=== PATIENT | male | born 1945 | race Caucasian/White ===

== ENCOUNTER 2017-03-28 13:46 | Emergency (ER) | payer MEDICARE, BC ==
[2005-12-15 17:22] VITALS: BP 147/90
[~2017-03-28] VITALS: Ht 175.3 cm; Wt 78.2 kg
[~2017-03-28 13:46] MED LIST: ACETAMINOPHEN W1 TA6 PO; ALLOPURINOL300 MG PO; BENICAR HCT 12.1 TAB PO; CALCIUM CITRAT200 MG PO; DIPHEN/ATROP; LANSOPRAZOLE30 MG PO; LISINOPRIL/HCTZ1 TAB PO; METRONIDAZOLE500 MG PO; NEXIUM 40MG40 MG PEG; PHENERGAN 25 TA25 MG PO; [UNRECOGNIZED DRUG - CODE]
[2017-03-28 14:01] VITALS: BP 120/63; PULSE 92; TEMP 98
== END 2017-03-28 15:30 | disposition home or self-care (01) ==
LOC: COL.ER 13:46
DX: S81.012A Laceration without foreign body, left knee, initial encounter (principal); I10 Essential (primary) hypertension; Z93.2 Ileostomy status; W27.1XXA Contact with garden tool, initial encounter; Y92.007 Garden or yard of unspecified non-institutional (private) residence as the place of occurrence of the external cause; Z23 Encounter for immunization

== ENCOUNTER 2017-04-11 13:19 | Emergency (ER) | payer MEDICARE, BC ==
[2017-04-11 13:22] VITALS: BP 124/57; PULSE 71; TEMP 97.8
== END 2017-04-11 13:26 | disposition home or self-care (01) ==
LOC: COL.ER 13:19
DX: S81.012D Laceration without foreign body, left knee, subsequent encounter (principal); X58.XXXD Exposure to other specified factors, subsequent encounter

== ENCOUNTER 2020-07-03 15:00 | Outpatient (RCR) | payer MEDICARE, BC ==
[2005-12-15 17:22] VITALS: BP 147/90
[2020-05-22 15:26] LABS: HEMATOCRIT 42.2 % (42.0-52.0); MEAN CELL VOLUME 90 fl (80.0-100.0); MEAN CORPUSCULAR HEMOGLOBIN 30 pg (27.0-31.0); MEAN CORPUSCULAR HGB CONC 33 g/dl (33.0-37.0); MEAN PLATELET VOLUME 8.9 fl (7.4-10.4); PLATELET COUNT 214 K/mm3 (130-400); REDCELL DISTRIBUTION WIDTH-CV 14.1 % (11.5-14.5)
[2020-05-22 15:51] LABS: ALBUMIN 3.3 gm/dL (3.5-5.0); BILIRUBIN,TOTAL 0.7 mg/dL (0.0-1.0); CALCIUM 8.6 mg/dL (8.4-10.2); CREATININE, serum 1.11 (0.66-1.25); POTASSIUM 3.9 mmol/L (3.4-5.0); TOTAL PROTEIN 6.3 gm/dL (6.4-8.2)
[2020-05-22 16:00] VITALS: BP 134/77; PULSE 80; TEMP 98.3
[2020-05-22 17:35] VITALS: BP 134/80; PULSE 80; TEMP 98.3
[2020-06-05 15:07] LABS: HEMATOCRIT 42.7 % (42.0-52.0); HEMOGLOBIN 14.3 g/dl (13.5-18.0); MEAN CELL VOLUME 90 fl (80.0-100.0); MEAN CORPUSCULAR HEMOGLOBIN 30 pg (27.0-31.0); MEAN CORPUSCULAR HGB CONC 34 g/dl (33.0-37.0); MEAN PLATELET VOLUME 8.6 fl (7.4-10.4); PLATELET COUNT 279 K/mm3 (130-400); RED BLOOD COUNT 4.77 M/mm3 (4.20-5.60); REDCELL DISTRIBUTION WIDTH-CV 13.8 % (11.5-14.5)
[2020-06-05 15:16] LABS: ALBUMIN 3.5 gm/dL (3.5-5.0); BILIRUBIN,TOTAL 0.5 mg/dL (0.0-1.0); CALCIUM 9.1 mg/dL (8.4-10.2); CREATININE, serum 1.1 (0.66-1.25); POTASSIUM 3.9 mmol/L (3.4-5.0); TOTAL PROTEIN 6.7 gm/dL (6.4-8.2)
[2020-06-05 16:04] VITALS: BP 131/64; PULSE 85; TEMP 98.4
[2020-06-05 16:30] VITALS: BP 137/62; PULSE 88
[~2020-07-03] VITALS: Ht 175.3 cm; Wt 74.1 kg
[2020-07-03 10:34] LABS: HEMATOCRIT 45.6 % (42.0-52.0); HEMOGLOBIN 15.2 g/dl (13.5-18.0); MEAN CELL VOLUME 90 fl (80.0-100.0); MEAN CORPUSCULAR HEMOGLOBIN 30 pg (27.0-31.0); MEAN CORPUSCULAR HGB CONC 33 g/dl (33.0-37.0); MEAN PLATELET VOLUME 9.1 fl (7.4-10.4); PLATELET COUNT 247 K/mm3 (130-400); RED BLOOD COUNT 5.07 M/mm3 (4.20-5.60); REDCELL DISTRIBUTION WIDTH-CV 14.6 % (11.5-14.5)
[2020-07-03 10:49] LABS: ALBUMIN 3.8 gm/dL (3.5-5.0); BILIRUBIN,TOTAL 0.9 mg/dL (0.0-1.0); CREATININE, serum 1.06 (0.66-1.25); POTASSIUM 3.5 mmol/L (3.4-5.0); TOTAL PROTEIN 6.6 gm/dL (6.4-8.2)
[2020-07-03 11:55] VITALS: BP 144/79; PULSE 69; TEMP 98.4
[2020-07-03 12:17] VITALS: BP 133/76; PULSE 69; TEMP 98.4
[~2020-07-03 15:00] MED LIST changes: +ADVIL200 MG PO; -ALLOPURINOL300 MG PO; +CLARITIN-D 10 M1 T24 PO; +COZAAR 50MG50 MG/TAB PO; +ENTOCORT EC3 MG PO; +FLAGYL500 MG PO; +FLONASEALLERGY NS; +FOSAMAX 35MG35 MG PO; +KRILL OIL 1,001 EAC1 PO; -LANSOPRAZOLE30 MG PO; +LOMOTIL 0.025 M1 TAB PO; -METRONIDAZOLE500 MG PO; +PATADAY5 ML OP; +PREDFORTE15ML OU; +PREVACID 30MG30 M1 PO; +TRIAMCINOLONE AC0.13 TOP; +ZYLOPRIM 300MG300 MG PO; +[UNRECOGNIZED DRUG - OTHER] PO
== END 2020-07-03 16:00 | disposition still patient (30) ==
LOC: EUO 15:00
PROVIDERS: Internal Medicine Gastroenterology
DX: K50.90 Crohn's disease, unspecified, without complications (principal); Z79.899 Other long term (current) drug therapy
CPT/HCPCS: J1200; J2920; J2930; J3380; J7050

== ENCOUNTER 2020-08-28 14:46 | Outpatient (CLI) | payer MEDICARE, BC ==
[2005-12-15 17:22] VITALS: BP 147/90
[2020-08-28 15:27] LABS: HEMATOCRIT 40.1 % (42.0-52.0); HEMOGLOBIN 13.7 g/dl (13.5-18.0); MEAN CELL VOLUME 89 fl (80.0-100.0); MEAN CORPUSCULAR HEMOGLOBIN 30 pg (27.0-31.0); MEAN CORPUSCULAR HGB CONC 34 g/dl (33.0-37.0); MEAN PLATELET VOLUME 8.8 fl (7.4-10.4); PLATELET COUNT 263 K/mm3 (130-400); RED BLOOD COUNT 4.51 M/mm3 (4.20-5.60)
[2020-08-28 15:44] LABS: ALBUMIN 3.4 gm/dL (3.5-5.0); BILIRUBIN,TOTAL 0.6 mg/dL (0.0-1.0); CALCIUM 8.8 mg/dL (8.4-10.2); CREATININE, serum 1.1 (0.66-1.25); POTASSIUM 3.6 mmol/L (3.4-5.0)
[2020-08-28 17:00] VITALS: BP 129/60; PULSE 73; TEMP 97.4
== END 2020-08-28 18:20 | disposition home or self-care (01) ==
LOC: EUO 14:46
PROVIDERS: Internal Medicine Gastroenterology
DX: K50.90 Crohn's disease, unspecified, without complications (principal); Z79.899 Other long term (current) drug therapy
CPT/HCPCS: J1200; J2930; J3380; J7050

== ENCOUNTER 2020-10-23 08:57 | Outpatient (CLI) | payer MEDICARE, BC ==
[2005-12-15 17:22] VITALS: BP 147/90
[~2020-10-23] VITALS: Ht 175.3 cm; Wt 74.6 kg
[2020-10-23 11:13] VITALS: BP 115/76; PULSE 91; TEMP 99.1
[2020-10-23 11:50] VITALS: BP 116/78; PULSE 89; TEMP 98.4
[2020-10-23 12:33] LABS: ALBUMIN 3.4 gm/dL (3.5-5.0); BILIRUBIN,TOTAL 0.6 mg/dL (0.0-1.0); CREATININE, serum 1.14 (0.66-1.25); POTASSIUM 3.8 mmol/L (3.4-5.0); TOTAL PROTEIN 6.2 gm/dL (6.4-8.2)
[2020-10-23 13:48] LABS: MEAN CELL VOLUME 90 fl (80.0-100.0); MEAN CORPUSCULAR HEMOGLOBIN 30 pg (27.0-31.0); MEAN CORPUSCULAR HGB CONC 33 g/dl (33.0-37.0); MEAN PLATELET VOLUME 8.8 fl (7.4-10.4); PLATELET COUNT 317 K/mm3 (130-400); RED BLOOD COUNT 4.66 M/mm3 (4.20-5.60); REDCELL DISTRIBUTION WIDTH-CV 13.6 % (11.5-14.5)
== END 2020-10-23 12:00 | disposition home or self-care (01) ==
LOC: EUO 08:57
PROVIDERS: Internal Medicine Gastroenterology
DX: K50.90 Crohn's disease, unspecified, without complications (principal); Z93.2 Ileostomy status; M85.80 Other specified disorders of bone density and structure, unspecified site
CPT/HCPCS: J1200; J2930; J3380; J7050

== ENCOUNTER → 2020-10-23 | Outpatient (CLI) | payer MEDICARE, BC ==
[2020-10-24 16:49] LABS: TB GOLD INTERPRETATION Negative (Negative)
== END ==
LOC: COL.LAB 12:57
PROVIDERS: Internal Medicine Gastroenterology
DX: K50.90 Crohn's disease, unspecified, without complications (principal); M85.80 Other specified disorders of bone density and structure, unspecified site; Z93.2 Ileostomy status

== ENCOUNTER 2021-01-21 14:20 | Outpatient (CLI) | payer MEDICARE, BC ==
[2005-12-15 17:22] VITALS: BP 147/90
[~2021-01-21] VITALS: Ht 175.3 cm; Wt 75.2 kg
[2021-01-21 15:32] VITALS: BP 138/78; PULSE 79; TEMP 98.4
[2021-01-21 16:10] VITALS: BP 152/73; PULSE 77; TEMP 98.2
[2021-01-21 16:45] VITALS: BP 156/82; PULSE 80
--- NOTE | 2021-01-21 17:25 | NUR ---
Pt tolerated initial stelara infusion with no adverse or allergic reactions. pt was monitored for 1 hr after infusion, and ambulated to exit with steady gait. Pt denies concerns at time of departure.
[2021-01-21] MEDS ORDERED: VALIUM 2MG T2 MG/TAB PO (17:41)
[2021-01-21] MEDS ORDERED: ENTOCORT EC3 MG PO (17:41)
== END 2021-01-21 17:43 | disposition home or self-care (01) ==
LOC: EUO 14:20
DX: K50.90 Crohn's disease, unspecified, without complications (principal)
CPT/HCPCS: J3380